=== PATIENT | male | born 1950 | race Caucasian/White ===

== ENCOUNTER 2023-01-28 16:19 | Outpatient (REF) | payer MEDICARE, BC, SELFPAY ==
[2023-01-28 20:50] LABS: Abs Immature Grans 0.03 10^3/uL (0.0-0.06); Absolute Basophil Count 0.02 10^3/uL (0.0-0.2); Absolute Lymphocyte Count 1.36 10^3/uL (1.2-3.4); Absolute Monocyte Count 0.77 10^3/uL (0.1-0.8); Absolute Neutrophil Count 3.65 10^3/uL (1.2-6.7); Basophils % 0.3; Eosinophils % 3.3; HCT 33.2 % (40.0-50.0); HGB 10.5 g/dL (13.5-17.5); Immature Grans % 0.5; Lymphocytes % 22.6; MCH 27.5 pg (27.0-33.0); MCHC 31.6 % (32.0-36.0); MCV 87 fL (80-95); MPV 11.9 fL (8.0-11.0); Monocytes % 12.8; Neutrophils % 60.5; Platelet Count 198 10^3/uL (130-400); RBC 3.82 10^6/uL (4.36-5.78); RDW 15.8 % (11.8-14.1); RDW-SD 50.2 fL; WBC 6.03 10^3/uL (4.4-10.8)
[2023-01-28 21:13] LABS: ALT 27 U/L (16-63); AST 40 U/L (15-37); Albumin 3.4 g/dL (3.4-5.0); Alkaline Phosphatase 153 U/L (46-116); Anion Gap 7.1 mmol/L (3-11); BUN 26 mg/dL (7-18); Bilirubin, Total 0.4 mg/dL (0.2-1.0); CO2 29.9 mmol/L (21.0-32.0); CREATININE 1.5 mg/dL (0.70-1.30); Calcium 9.5 mg/dL (8.5-10.1); Calculated LDL 116 mg/dL (<100); Chloride 99 mmol/L (98-107); Cholesterol 172 mg/dL (<200); Estimated GFR 49.77 (mL/min/1.73m2); Glucose 287 mg/dL (74-106); HDL Cholesterol 33 mg/dL (40-60); Potassium 3.8 mmol/L (3.5-5.1); Sodium 136 mmol/L (136-145); TSH (W/Ref FT4) 1.02 uIU/mL (0.36-3.74); Total Protein 7.3 g/dL (6.4-8.2); Triglyceride 116 mg/dL (<150)
[2023-01-28 21:26] LABS: Hemoglobin A1C 7.3 % (<5.7)
[2023-01-31 10:23] LABS: PSA, Screening 0.6 ng/mL (<=6.5)
== END 2023-01-28 16:20 | disposition home or self-care (01) ==
LOC: NCHCN 16:19
PROVIDERS: PCP Internal Medicine; Visit Provider Family Medicine
DX: E78.2 Mixed hyperlipidemia (principal); I10 Essential (primary) hypertension; E11.9 Type 2 diabetes mellitus without complications; Z13.29 Encounter for screening for other suspected endocrine disorder; Z12.5 Encounter for screening for malignant neoplasm of prostate
CPT/HCPCS: 80053; 80061; 84153; 83036; 84443; 85025

== ENCOUNTER 2023-08-12 14:45 | Outpatient (REF) | payer MEDICARE, BC, SELFPAY ==
[2023-08-12 22:16] LABS: C Diff PCR Negative (Negative)
[2023-08-14 20:38] LABS: Campylobacter PCR Negative (Negative); Salmonella PCR Negative (Negative); Shiga Toxin PCR Negative (Negative); Shigella/Enteroinvasive Ecoli Negative (Negative)
[2023-08-16 13:38] LABS: Helicobacter pylori Ag, Feces Negative (Negative)
== END 2023-08-12 14:46 | disposition home or self-care (01) ==
LOC: NCHCN 14:45
PROVIDERS: PCP Internal Medicine; Visit Provider Family Medicine
DX: R19.7 Diarrhea, unspecified (principal)
CPT/HCPCS: 87329; 87338; 87493; 87505; 87177